=== PATIENT | male | born 1995 | race Caucasian/White ===

== ENCOUNTER 2018-08-07 14:06 | Emergency (ER) | payer BC ==
--- NOTE | 2018-08-07 14:47 | ED Physician Chart ---
ED Chief Complaint/HPI - Patient Information Date Seen:: 08/07/18 Time Seen:: 14:22 Chief Complaint:: 1 1/2 week h/o headaches History of Present Illness:: 1 1/2 week h/o headaches. States that he "never gets headaches." Has a primary care physician in [facility]. Is going to college here. Hasn' t gone to [employer]. States that his insurance should cover everything. When I was about to examine the patient, patient decided to leave before being examined. I offered to have him him talk to Carlos about his insurance. He decided not to and decided to leave. Allergies:: Allergies Allergy/AdvReac Type Severity Reaction Status Date / Time No Known Allergies Allergy Verified 06/11/17 10:57 Vitals:: Vital Signs - 8 hr 08/07/18 14:22 Temp 97.8 F HR 87 RR 16 BP 123/83 O2 Sat % 99 ED Review of Systems - Review of Systems General/Constitutional: No fever, No chills, No weight loss, No weakness, No diaphoresis, No edema, No loss of appetite Skin: No skin lesions, No rash, No bruising Head: Headache Eyes: No loss of vision, No pain, No diplopia ENT: No earache, No nasal drainage, No sore throat, No tinnitus Neck: No neck pain, No swelling, No thyromegaly, No stiffness, No mass noted Cardio Vascular: No chest pain, No palpitations, No PND, No orthopnea, No edema Pulmonary: No SOB, No cough, No sputum, No wheezing GI: No nausea, No vomiting, No diarrhea, No pain, No melena, No hematochezia, No constipation, No hematemesis G/U: No dysuria, No frequency, No hematuria Musculoskeletal: No bone or joint pain, No back pain, No muscle pain Endocrine: No polyuria, No polydipsia Psychiatric: No prior psych history, No depression, No anxiety, No suicidal ideation Hematopoietic: No bruising, No lymphadenopathy Allergic/Immuno: No urticaria, No angioedema Neurological: No syncope, No focal symptoms, No weakness, No paresthesia, No headache, No seizure, No dizziness, No confusion, No vertigo ED Past Medical History - Past Medical History Obtainable: Yes Past Medical History: No significant medical hx Family Medical History - Family Member Mother Hx Family Cancer: No Hx Family Coronary Artery Disease: No Hx Family Hypertension: No Hx Family Stroke: No Hx Family Diabetes: No Hx Family Dementia: No Hx Family AIDS: No Hx Family HIV: No Hx Family COPD: No Hx Family Psychiatric Problems: No ED Physical Exam - Physical Examination General/Constitutional: Awake, Well-developed, well-nourished, Alert, No distress, GCS 15, Non-toxic appearing, Ambulatory Head: Atraumatic Eyes: Lids, conjuctiva normal, PERRL, EOMI Skin: Nl inspection, No rash ENMT: External ears, nose nl Respiratory: Nl effort/Exclusion Neuro/Psych: Alert/oriented, Normal sensory exam, Normal motor strength, Judgement/insight normal, Mood normal, Normal gait, No focal deficits ED Assessment - Assessment General Assessment: patient decided to leave before being seen. ED Septic Shock - . Is Septic Shock (SBP<90, OR Lactate>4 mmol\\L) present?: No - <6hrs of presentation: Vital Signs: Vital Signs - 8 hr 08/07/18 14:22 Temp 97.8 F HR 87 RR 16 BP 123/83 O2 Sat % 99 ED Reassessment (Disposition) - Reassessment Reassessment Condition:: Unchanged - Diagnosis Diagnosis:: Headache Left without being seen - Patient Disposition Discharge/Transfer:: left without being seen Condition at Disposition:: Stable, Unchanged
== END 2018-08-07 15:10 | disposition left against medical advice (07) ==
LOC: ER 14:06
DX: R51 Headache (principal)
CPT/HCPCS: Z7502